=== PATIENT | female | born 1980 | race African-American/Black ===

== ENCOUNTER 2024-07-19 10:38 | Observation (INO) | payer BC ==
[2024-07-19 11:52] LABS: HEMATOCRIT 37.4 % (32.4-45.2); MCH 27.4 pg (25.7-33.7); MCHC 32.1 g/dl (32.0-36.0); MEAN CELL VOLUME 85.4 fl (80-96); MEAN PLT VOLUME 10.3 fl (7.5-11.1); PLATELET COUNT 223.6 10^3/uL (134-434); RBC 4.38 10^6/uL (3.60-5.2); WHITE BLOOD COUNT 4.9 10^3/uL (4.0-10.8)
[2024-07-19 11:56] LABS: PLATELET ESTIMATE ADEQUATE
[2024-07-19] MEDS: LACTATED RINGERS SOLUTION 1000 ML INFUS.BAG IV ONE (12:01)
[2024-07-19 12:02] LABS: ALBUMIN 4.4 g/dl (3.4-5.0); BILIRUBIN,TOTAL 0.7 mg/dl (0.2-1); CALCIUM 9.7 mg/dl (8.5-10.1); CREATININE 0.7 mg/dl (0.6-1.3); POTASSIUM 3.5 mmol/L (3.5-5.1); TOT PROT 7.1 g/dl (6.4-8.2)
[2024-07-19] MEDS ORDERED: SUMAtriptan SUCCINATE 25 MG TABLET PO PRN (14:04)
[2024-07-19] MEDS ORDERED: ACETAMINOPHEN 500 MG TABLET (FP) PO PRN (14:04)
[2024-07-19 14:49] LABS: HIV INTERPRETATION NEGATIVE (NEGATIVE)
[2024-07-19 15:36] LABS: METHADONE, UR NEGATIVE (NEGATIVE); OPIATES, URI NEGATIVE (NEGATIVE); URINE AMPHETAMINES NEGATIVE (NEGATIVE); URINE BENZODIAZEPINES NEGATIVE (NEGATIVE)
[2024-07-19 15:37] LABS: COCAINE, UR NEGATIVE (NEGATIVE)
[2024-07-19 15:38] LABS: URINE BARBITURATES NEGATIVE (NEGATIVE)
[2024-07-19 16:34] LABS: PHENCYCLIDINE,URINE NEGATIVE (NEGATIVE)
[2024-07-19 18:00] VITALS: BMI 30.5
[2024-07-19] MEDS: ATORVASTATIN CA 40 MG TABLET (FP) PO SCH (22:32)
[2024-07-20 09:47] LABS: CALCIUM 9.4 mg/dl (8.5-10.1); CREATININE 0.7 mg/dl (0.6-1.3); PHOSPHOROUS 4.5 (2.5-4.9); POTASSIUM 3.8 mmol/L (3.5-5.1)
[2024-07-20 10:53] LABS: BASO % 0.5 % (0-2.0); EOS % 6.3 % (0-4.5); HEMATOCRIT 33.1 % (32.4-45.2); HEMOGLOBIN 11.2 GM/dL (10.7-15.3); LYMPH % 37.3 % (8-40); MCH 28.3 pg (25.7-33.7); MCHC 33.9 g/dl (32.0-36.0); MEAN CELL VOLUME 83.6 fl (80-96); MEAN PLT VOLUME 9.4 fl (7.5-11.1); MONO % 9.1 % (3.8-10.2); NEUT % 46.8 % (42.8-82.8); PLATELET COUNT 200 10^3/uL (134-434); RBC 3.96 M/mm3 (3.60-5.2); RDW 15.9 % (11.6-15.6); WHITE BLOOD COUNT 4.2 K/mm3 (4.0-10.0)
[2024-07-20 17:26] VITALS: BP 129/93; PULSE 64; RESP 18; TEMP 99.1
== END 2024-07-20 18:05 | disposition home or self-care (01) ==
LOC: FER 10:38 → FM/S 12:42
PROVIDERS: ADMIT Internal Medicine; ATTEND Internal Medicine
PROC: 3E0337Z Introduction of Electrolytic and Water Balance Substance into Peripheral Vein, Percutaneous Approach (ICD-10-PCS; principal; 2024-07-19)
DX: R56.9 Unspecified convulsions (principal); G43.909 Migraine, unspecified, not intractable, without status migrainosus; I10 Essential (primary) hypertension; E78.5 Hyperlipidemia, unspecified; Z88.0 Allergy status to penicillin; Z88.1 Allergy status to other antibiotic agents; Z88.2 Allergy status to sulfonamides; Z88.8 Allergy status to other drugs, medicaments and biological substances
CPT/HCPCS: 0241U-QW; 36415; 70450-TC; 70551-TC; 80048; 80053; 80061; 80307; 81003; 82306; 82550; 82607; 82746; 82962; 83036; 83735; 84100; 84484; 84703; 85025; 85027; 86803; 86850; 86900; 86901; 87086; 87389; 93005; 97116-GP; 97162-GP; 99285-25; G0378